=== PATIENT | male | born 1980 | race Caucasian/White ===

== ENCOUNTER 2017-01-26 13:45 | Emergency (ER) | payer SELFPAY ==
[2017-01-26 14:34] VITALS: BP 138/89
[2017-01-26] MEDS ORDERED: TETRACAINE 0.5% OU ONE (14:40)
[2017-01-26] MEDS ORDERED: FUL-GLO OP ONE ×2 (16:01→18:56)
[2017-01-26] MEDS ORDERED: BOOSTRIX IM ONE (16:07)
[2017-01-26] MEDS ORDERED: MOTRIN PO ONE (16:07)
--- NOTE | 2017-01-26 16:27 | Emergency Department Report ---
ED Eye Problem HPI - General Chief complaint: Eye Problems Stated complaint: LEFT EYE PAIN Time Seen by Provider: 01/26/17 16:06 Source: patient, financial institution president Mode of arrival: Ambulatory Limitations: Language Barrier - History of Present Illness Initial comments: 36-year-old male past medical history none presents with complaint of foreign body sensation in left eye. 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 Patient is awake alert and oriented 3 visible conjunctival redness left eye. MD chief complaint: eye pain, eye redness, eye injury -: This morning - Related Data Previous Rx's Medication Instructions Recorded Last Taken Type Erythromycin [Erythromycin Ophth 1 applic OP QID #1 tube 01/26/17 Unknown Rx Oint] Glycerin/Propylene Glycol 1 drop OP Q4H PRN #1 bottle 01/26/17 Unknown Rx [Artificial Tears Drops] Ibuprofen [Motrin] 600 mg PO Q8H PRN #30 tablet 01/26/17 Unknown Rx Allergies Allergy/AdvReac Type Severity Reaction Status Date / Time No Known Allergies Allergy Unverified 01/26/17 14:28 ED Review of Systems ROS: Stated complaint: LEFT EYE PAIN Other details as noted in HPI Constitutional: denies: chills, fever Eyes: eye pain (left eye). denies: eye discharge, vision change ENT: denies: ear pain, throat pain Respiratory: denies: cough, shortness of breath, wheezing Cardiovascular: denies: chest pain, palpitations Endocrine: no symptoms reported Gastrointestinal: denies: abdominal pain, nausea, diarrhea Genitourinary: denies: urgency, dysuria Musculoskeletal: denies: back pain, joint swelling, arthralgia Skin: denies: rash, lesions Neurological: denies: headache, weakness, paresthesias Psychiatric: denies: anxiety, depression Hematological/Lymphatic: denies: easy bleeding, easy bruising ED Past Medical Hx - Past Medical History Previous Medical History?: No - Surgical History Past Surgical History?: No - Social History Smoking Status: Never Smoker Substance Use Type: Alcohol - Medications Home Medications: Home Medications Medication Instructions Recorded Confirmed Last Taken Type Erythromycin [Erythromycin Ophth 1 applic OP QID #1 tube 01/26/17 Unknown Rx Oint] Glycerin/Propylene Glycol 1 drop OP Q4H PRN #1 bottle 01/26/17 Unknown Rx [Artificial Tears Drops] Ibuprofen [Motrin] 600 mg PO Q8H PRN #30 tablet 01/26/17 Unknown Rx ED Physical Exam - General Limitations: Language Barrier General appearance: alert, in no apparent distress - Head Head exam: Present: atraumatic, normocephalic - Eye Eye exam: Present: normal appearance, PERRL, EOMI - Expanded Eye Exam Expanded Pupils: Regular, Round: Bilateral, Reactive: Bilateral Sclera/Conjunctival: Normal Inspection: Right, Injection: Left (left sided conjunctival injection), Foreign Body: Left (+ flouresciene uptake left eye, visible small corneal abrasion adjacent to 9 o'clock position iris. No visible rust ring no corneal ulcer. Visible foreign body on surface of cornea) Anterior chamber: Normal Inspection: Bilateral Visual acuity (R) = 20/: 20 Visual acuity (L) = 20/: 30 With correction: No - ENT ENT exam: Present: normal exam, mucous membranes moist - Neck Neck exam: Present: normal inspection - Respiratory Respiratory exam: Present: normal lung sounds bilaterally. Absent: respiratory distress - Cardiovascular Cardiovascular Exam: Present: regular rate, normal rhythm. Absent: systolic murmur, diastolic murmur, rubs, gallop - GI/Abdominal GI/Abdominal exam: Present: soft, normal bowel sounds - Rectal Rectal exam: Present: deferred - Extremities Exam Extremities exam: Present: normal inspection - Back Exam Back exam: Present: normal inspection - Neurological Exam Neurological exam: Present: alert, oriented X3 - Psychiatric Psychiatric exam: Present: normal affect, normal mood - Skin Skin exam: Present: warm, dry, intact, normal color. Absent: rash ED Course Vital Signs 01/26/17 14:29 Temperature 98.2 F Pulse Rate 100 H Respiratory 20 Rate Blood Pressure 138/89 O2 Sat by Pulse 96 Oximetry - Eye Procedure Alcaine Drops Administered: Yes Eye FB Removal: removal w/ cotton swab Eye Irrigated w/ Saline (ccs): 1,000 Progress: Left eye irrigated with 1000 mL of normal saline per rony lens. Patient experienced significant relief of foreign body sensation afterward. eye inspected afterward no foreign body visualized. ED Medical Decision Making - Medical Decision Making A/P: Corneal abrasion left eye 1-left eye flushed with 1 L of normal saline via Rony lens. Patient experienced significant relief of foreign body sensation and no foreign body visualized upon subsequent inspection of surface of the eye. Originally there was small amount of uptake around small foreign body. Some residue left eyelid which I removed via cotton swab. Motrin when necessary, erythromycin ointment to left eye. Vision is 20/30 left eye, 20/20 right eye, 20/30 overall 2-follow up with ophthalmology, pt given referral information 3-tetanus vaccine updated today 4- artificial tears to left eye ER and Critical care attestation.: If time is entered above; I have spent that time in minutes in the direct care of this critically ill patient, excluding procedure time. ED Disposition Clinical Impression: Corneal abrasion, left Qualifiers: Encounter type: initial encounter Qualified Code(s): S05.02XA - Injury of conjunctiva and corneal abrasion without foreign body, left eye, initial encounter Disposition: TO HOME OR SELFCARE Is pt being admited?: No Does the pt Need Aspirin: No Condition: Stable Instructions: Corneal Abrasion (ED), Eye Foreign Body (ED) Prescriptions: Erythromycin [Erythromycin Ophth Oint] 1 applic OP QID #1 tube Glycerin/Propylene Glycol [Artificial Tears Drops] 1 drop OP Q4H PRN #1 bottle PRN Reason: Dry Eye(S) Ibuprofen [Motrin] 600 mg PO Q8H PRN #30 tablet PRN Reason: Pain Referrals: RONNY BRANCH MD [Staff Physician] - 3-[address] [facility] [Provider Group] - 3-5 Days Forms: Work/School Release Form(ED) Time of Disposition: 18:40 Print Language: YAKUT
[2017-01-26] MEDS ORDERED: NACL 0.9% 0 ML IR ONE (17:03)
[2017-01-26] MEDS ORDERED: NACL 0.9% 1000 ML 1,000 ML ONE (17:04)
[2017-01-26] MEDS ORDERED: NACL 0.9% 1000 ML 1,000 ML IR ONE (18:56)
== END 2017-01-26 18:49 | disposition home or self-care (01) ==
LOC: ED 13:45
DX: S05.02XA Injury of conjunctiva and corneal abrasion without foreign body, left eye, initial encounter (principal); X58.XXXA Exposure to other specified factors, initial encounter; Y93.9 Activity, unspecified; Y99.9 Unspecified external cause status; Y92.89 Other specified places as the place of occurrence of the external cause
CPT/HCPCS: 90471; 90715; 99283; J7030